=== PATIENT | female | born 1985 | race Caucasian/White ===

== ENCOUNTER 2019-04-02 18:44 | Inpatient (IN) | payer BC, MEDICAID ==
[~2019-04-02] VITALS: Ht 162.6 cm; Wt 73.4 kg
[2019-04-02 20:20] VITALS: BP 145/92
[2019-04-02] MEDS ORDERED: ACETAMINOPHEN 325 MG TABLET ONE (20:59)
[2019-04-02] MEDS ORDERED: PLEASE ENTER HEIGHT AND WEIGHT MC SCH (21:07)
[2019-04-02] MEDS: ACETAMINOPHEN 325 MG TABLET PO PRN (21:15)
[2019-04-02] MEDS ORDERED: LACTATED RINGERS 1,000 ML IV SCH (21:30)
[2019-04-02] MEDS: AMOXICILLIN 250 MG CAPSULE PO SCH (21:39)
[2019-04-02] MEDS: LACTATED RINGERS 1,000 ML IV SCH (21:48)
[2019-04-02 21:54] LABS: FIO2 RA %
[2019-04-02] MEDS ORDERED: DOCUSATE 100 MG CAPSULE ONE (22:19)
[2019-04-02] MEDS ORDERED: ENOXAPARIN 40 MG/0.4 ML SQ SCH (23:00)
[2019-04-02] MEDS: OSELTAMIVIR 75 MG CAPSULE PO SCH (23:31)
[2019-04-02 23:40] VITALS: BP 133/86
[2019-04-03] MEDS ORDERED: ACETAMINOPHEN 325 MG TABLET ONE ×4 (01:09→20:33)
[2019-04-03] MEDS: ACETAMINOPHEN 325 MG TABLET PO PRN ×3 (01:11→20:42)
[2019-04-03 01:15] VITALS: BP 137/93
[2019-04-03 05:23] VITALS: BP 117/81
[2019-04-03 05:33] LABS: BASOPHILS # (AUTO) 0.01 x10^3/uL (0-0.1); BASOPHILS % (AUTO) 0 % (0-1); EOSINOPHILS % (AUTO) 0 % (1-7); LYMPHOCYTES # (AUTO) 1.61 x10^3/uL (1-3.4); LYMPHOCYTES % (AUTO) 27 % (22-44); MD NO; MEAN CORPUSCULAR HEMOGLOBIN 31.9 pg (27.0-34.8); MEAN CORPUSCULAR HGB CONC 33.8 g/dL (32.4-35.8); MEAN CORPUSCULAR VOLUME 94.5 fL (80-100); MEAN PLATELET VOLUME 9.4 fL (7.4-10.4); MONOCYTES # (AUTO) 0.12 x10^3/uL (0.2-0.8); MONOCYTES % (AUTO) 2 % (2-9); NEUTROPHILS # (AUTO) 4.25 x10^3/uL (1.8-6.8); NEUTROPHILS % (AUTO) 71 % (42-75); PLATELET COUNT 119 x10^3/uL (130-400); RED CELL DISTRIBUTION WIDTH 13.7 % (9.6-15.2)
[2019-04-03] MEDS: LACTATED RINGERS 1,000 ML IV SCH ×3 (05:48→19:09)
[2019-04-03 05:51] LABS: ALBUMIN 2.2 g/dL (3.4-5.0); ANION GAP 9 mmol/L (5-15); CALCIUM 7.5 mg/dL (8.5-10.1); CHLORIDE 108 mmol/L (98-107)
[2019-04-03 05:55] LABS: ALANINE AMINOTRANSFERASE 22 U/L (12-78); ALKALINE PHOSPHATASE 72 U/L (45-117); BILIRUBIN, DIRECT 0.1 mg/dL (0.1-0.2); BILIRUBIN,TOTAL 0.3 mg/dL (0.2-1.0); CREATININE 0.84 mg/dL (0.55-1.02); TOTAL PROTEIN 5.7 g/dL (6.4-8.2)
[2019-04-03] MEDS: AMOXICILLIN 250 MG CAPSULE PO SCH ×3 (06:51→20:41)
[2019-04-03] MEDS: OSELTAMIVIR 75 MG CAPSULE PO SCH ×2 (08:41→20:41)
[2019-04-03] MEDS ORDERED: OSELTAMIVIR 75 MG CAPSULE PO SCH (09:00)
[2019-04-03 17:40] LABS: BASOPHILS # (AUTO) 0.01 x10^3/uL (0-0.1); BASOPHILS % (AUTO) 0 % (0-1); EOSINOPHILS % (AUTO) 0 % (1-7); LYMPHOCYTES # (AUTO) 1.93 x10^3/uL (1-3.4); LYMPHOCYTES % (AUTO) 28 % (22-44); MD NO; MEAN CORPUSCULAR HGB CONC 34.2 g/dL (32.4-35.8); MEAN CORPUSCULAR VOLUME 93.7 fL (80-100); MEAN PLATELET VOLUME 9.1 fL (7.4-10.4); MONOCYTES # (AUTO) 0.25 x10^3/uL (0.2-0.8); MONOCYTES % (AUTO) 4 % (2-9); NEUTROPHILS # (AUTO) 4.75 x10^3/uL (1.8-6.8); NEUTROPHILS % (AUTO) 68 % (42-75); PLATELET COUNT 131 x10^3/uL (130-400); RED BLOOD COUNT 3.66 x10^6/uL (3.82-5.3); RED CELL DISTRIBUTION WIDTH 13.4 % (9.6-15.2)
[2019-04-03] MEDS ORDERED: BETAMETHASONE 6 MG/ML, 5ML IM ONE ×2 (17:55→18:00)
[2019-04-03 19:20] VITALS: BP 139/86
[2019-04-03 23:30] VITALS: BP 154/93
[2019-04-04 00:40] VITALS: BP 134/85
[2019-04-04] MEDS: LACTATED RINGERS 1,000 ML IV SCH (03:42)
[2019-04-04 05:36] LABS: BASOPHILS # (AUTO) 0.02 x10^3/uL (0-0.1); BASOPHILS % (AUTO) 0 % (0-1); EOSINOPHILS % (AUTO) 0 % (1-7); LYMPHOCYTES # (AUTO) 1.73 x10^3/uL (1-3.4); LYMPHOCYTES % (AUTO) 22 % (22-44); MD NO; MEAN CORPUSCULAR HEMOGLOBIN 31.7 pg (27.0-34.8); MEAN CORPUSCULAR HGB CONC 33.9 g/dL (32.4-35.8); MEAN CORPUSCULAR VOLUME 93.6 fL (80-100); MEAN PLATELET VOLUME 9.8 fL (7.4-10.4); MONOCYTES # (AUTO) 0.18 x10^3/uL (0.2-0.8); MONOCYTES % (AUTO) 2 % (2-9); NEUTROPHILS # (AUTO) 5.82 x10^3/uL (1.8-6.8); NEUTROPHILS % (AUTO) 75 % (42-75); PLATELET COUNT 128 x10^3/uL (130-400); RED BLOOD COUNT 3.56 x10^6/uL (3.82-5.3); RED CELL DISTRIBUTION WIDTH 13.7 % (9.6-15.2)
[2019-04-04] MEDS: AMOXICILLIN 250 MG CAPSULE PO SCH ×3 (05:40→21:04)
[2019-04-04 05:49] LABS: ALBUMIN 2.3 g/dL (3.4-5.0); ANION GAP 7 mmol/L (5-15); CALCIUM 8.2 mg/dL (8.5-10.1); CHLORIDE 110 mmol/L (98-107)
[2019-04-04 05:52] LABS: ALANINE AMINOTRANSFERASE 21 U/L (12-78); ALKALINE PHOSPHATASE 78 U/L (45-117); BILIRUBIN,TOTAL 0.2 mg/dL (0.2-1.0); CREATININE 0.69 mg/dL (0.55-1.02); TOTAL PROTEIN 5.9 g/dL (6.4-8.2)
[2019-04-04 06:05] VITALS: BP 131/96
[2019-04-04] MEDS: OSELTAMIVIR 75 MG CAPSULE PO SCH ×2 (08:34→21:39)
[2019-04-04 08:37] VITALS: BP 128/86
[2019-04-04 13:16] VITALS: BP 139/81
[2019-04-04] MEDS ORDERED: ACETAMINOPHEN 325 MG TABLET ONE (20:45)
[2019-04-04] MEDS ORDERED: DOCUSATE 100 MG CAPSULE ONE (20:45)
[2019-04-04] MEDS: ACETAMINOPHEN 325 MG TABLET PO PRN (21:05)
[2019-04-04] MEDS: DOCUSATE 100 MG CAPSULE PO SCH (21:06)
[2019-04-05 05:39] LABS: BASOPHILS # (AUTO) 0.01 x10^3/uL (0-0.1); BASOPHILS % (AUTO) 0 % (0-1); EOSINOPHILS # (AUTO) 0.02 x10^3/uL (0-0.4); EOSINOPHILS % (AUTO) 0 % (1-7); LYMPHOCYTES # (AUTO) 2.37 x10^3/uL (1-3.4); LYMPHOCYTES % (AUTO) 30 % (22-44); MD NO; MEAN CORPUSCULAR HEMOGLOBIN 32.3 pg (27.0-34.8); MEAN CORPUSCULAR HGB CONC 34.1 g/dL (32.4-35.8); MEAN CORPUSCULAR VOLUME 94.7 fL (80-100); MEAN PLATELET VOLUME 9.6 fL (7.4-10.4); MONOCYTES # (AUTO) 0.34 x10^3/uL (0.2-0.8); MONOCYTES % (AUTO) 4 % (2-9); NEUTROPHILS # (AUTO) 5.14 x10^3/uL (1.8-6.8); NEUTROPHILS % (AUTO) 65 % (42-75); PLATELET COUNT 144 x10^3/uL (130-400); RED BLOOD COUNT 3.59 x10^6/uL (3.82-5.3); RED CELL DISTRIBUTION WIDTH 13.5 % (9.6-15.2)
[2019-04-05 05:49] LABS: ALBUMIN 2.2 g/dL (3.4-5.0); ANION GAP 7 mmol/L (5-15); CALCIUM 7.8 mg/dL (8.5-10.1); CHLORIDE 110 mmol/L (98-107)
[2019-04-05 05:54] LABS: ALANINE AMINOTRANSFERASE 25 U/L (12-78); ALKALINE PHOSPHATASE 74 U/L (45-117); BILIRUBIN,TOTAL 0.2 mg/dL (0.2-1.0); CREATININE 0.75 mg/dL (0.55-1.02); TOTAL PROTEIN 5.9 g/dL (6.4-8.2)
[2019-04-05] MEDS ORDERED: DOCUSATE 100 MG CAPSULE ONE ×2 (07:45→21:42)
[2019-04-05] MEDS ORDERED: PRENATAL VIT/IRON/FA 1 EACH TABLET ONE (07:45)
[2019-04-05] MEDS: DOCUSATE 100 MG CAPSULE PO SCH ×2 (08:04→21:00)
[2019-04-05] MEDS: PRENATAL VIT/IRON/FA 1 EACH TABLET PO SCH (08:05)
[2019-04-05] MEDS: AMOXICILLIN 250 MG CAPSULE PO SCH ×3 (08:05→22:27)
[2019-04-05] MEDS: OSELTAMIVIR 75 MG CAPSULE PO SCH ×2 (08:05→21:45)
[2019-04-05] MEDS ORDERED: LACTATED RINGERS 1,000 ML IVBOLUS ONE (15:00)
[2019-04-05] MEDS: LACTATED RINGERS 1,000 ML IV SCH ×2 (15:00→20:00)
[2019-04-05 19:45] VITALS: BP 144/89
[2019-04-05 22:35] VITALS: BP 155/79
[2019-04-06 04:48] VITALS: BP 161/88
[2019-04-06 04:57] LABS: BASOPHILS # (AUTO) 0.02 x10^3/uL (0-0.1); BASOPHILS % (AUTO) 0 % (0-1); EOSINOPHILS # (AUTO) 0.04 x10^3/uL (0-0.4); EOSINOPHILS % (AUTO) 1 % (1-7); LYMPHOCYTES # (AUTO) 2.65 x10^3/uL (1-3.4); LYMPHOCYTES % (AUTO) 30 % (22-44); MD NO; MEAN CORPUSCULAR HGB CONC 33.7 g/dL (32.4-35.8); MEAN CORPUSCULAR VOLUME 94.9 fL (80-100); MONOCYTES # (AUTO) 0.49 x10^3/uL (0.2-0.8); MONOCYTES % (AUTO) 6 % (2-9); NEUTROPHILS # (AUTO) 5.74 x10^3/uL (1.8-6.8); NEUTROPHILS % (AUTO) 64 % (42-75); PLATELET COUNT 152 x10^3/uL (130-400); RED BLOOD COUNT 3.87 x10^6/uL (3.82-5.3); RED CELL DISTRIBUTION WIDTH 13.7 % (9.6-15.2)
[2019-04-06 05:02] LABS: ALANINE AMINOTRANSFERASE 38 U/L (12-78); ALBUMIN 2.3 g/dL (3.4-5.0); ANION GAP 5 mmol/L (5-15); CALCIUM 8.2 mg/dL (8.5-10.1); CHLORIDE 109 mmol/L (98-107)
[2019-04-06 05:04] LABS: ALKALINE PHOSPHATASE 76 U/L (45-117); BILIRUBIN,TOTAL 0.4 mg/dL (0.2-1.0); CREATININE 0.82 mg/dL (0.55-1.02); TOTAL PROTEIN 6.2 g/dL (6.4-8.2)
[2019-04-06] MEDS: AMOXICILLIN 250 MG CAPSULE PO SCH ×3 (05:42→21:00)
[2019-04-06 05:45] VITALS: BP 109/61
[2019-04-06 06:41] VITALS: BP 146/85
[2019-04-06] MEDS ORDERED: PRENATAL VIT/IRON/FA 1 EACH TABLET ONE (08:58)
[2019-04-06 09:00] VITALS: BP 147/92
[2019-04-06] MEDS: DOCUSATE 100 MG CAPSULE PO SCH ×2 (09:04→21:00)
[2019-04-06] MEDS: PRENATAL VIT/IRON/FA 1 EACH TABLET PO SCH (09:04)
[2019-04-06] MEDS: OSELTAMIVIR 75 MG CAPSULE PO SCH ×2 (09:04→21:00)
[2019-04-06] MEDS ORDERED: DOCUSATE 100 MG CAPSULE ONE (20:58)
[2019-04-07] MEDS ORDERED: ACETAMINOPHEN 325 MG TABLET ONE ×2 (00:08→20:14)
[2019-04-07] MEDS: ACETAMINOPHEN 325 MG TABLET PO PRN ×2 (00:09→20:18)
[2019-04-07 05:40] LABS: BASOPHILS # (AUTO) 0.02 x10^3/uL (0-0.1); BASOPHILS % (AUTO) 0 % (0-1); EOSINOPHILS % (AUTO) 1 % (1-7); LYMPHOCYTES # (AUTO) 2.87 x10^3/uL (1-3.4); LYMPHOCYTES % (AUTO) 32 % (22-44); MD NO; MEAN CORPUSCULAR HGB CONC 33.8 g/dL (32.4-35.8); MEAN CORPUSCULAR VOLUME 94.5 fL (80-100); MEAN PLATELET VOLUME 9.5 fL (7.4-10.4); MONOCYTES % (AUTO) 5 % (2-9); NEUTROPHILS # (AUTO) 5.54 x10^3/uL (1.8-6.8); NEUTROPHILS % (AUTO) 62 % (42-75); PLATELET COUNT 161 x10^3/uL (130-400); RED BLOOD COUNT 3.76 x10^6/uL (3.82-5.3); RED CELL DISTRIBUTION WIDTH 12.9 % (9.6-15.2)
[2019-04-07 05:48] LABS: CALCIUM 8.1 mg/dL (8.5-10.1); CHLORIDE 109 mmol/L (98-107)
[2019-04-07 05:57] LABS: ALANINE AMINOTRANSFERASE 28 U/L (12-78); ALBUMIN 2.2 g/dL (3.4-5.0); ALKALINE PHOSPHATASE 76 U/L (45-117); ANION GAP 8 mmol/L (5-15); BILIRUBIN,TOTAL 0.2 mg/dL (0.2-1.0); CREATININE 0.72 mg/dL (0.55-1.02)
[2019-04-07] MEDS ORDERED: PRENATAL VIT/IRON/FA 1 EACH TABLET ONE (08:14)
[2019-04-07] MEDS ORDERED: DOCUSATE 100 MG CAPSULE ONE ×2 (08:14→20:49)
[2019-04-07] MEDS: AMOXICILLIN 250 MG CAPSULE PO SCH ×3 (09:00→20:55)
[2019-04-07 09:30] VITALS: BP 153/102
[2019-04-07] MEDS: PRENATAL VIT/IRON/FA 1 EACH TABLET PO SCH (09:48)
[2019-04-07] MEDS: DOCUSATE 100 MG CAPSULE PO SCH ×2 (09:48→20:55)
[2019-04-07] MEDS: OSELTAMIVIR 75 MG CAPSULE PO SCH ×2 (09:48→20:55)
[2019-04-08] MEDS ORDERED: ACETAMINOPHEN 325 MG TABLET ONE ×2 (02:50→21:15)
[2019-04-08] MEDS: ACETAMINOPHEN 325 MG TABLET PO PRN ×2 (02:50→21:16)
[2019-04-08 05:53] LABS: BASOPHILS # (AUTO) 0.02 x10^3/uL (0-0.1); BASOPHILS % (AUTO) 0 % (0-1); EOSINOPHILS # (AUTO) 0.05 x10^3/uL (0-0.4); EOSINOPHILS % (AUTO) 1 % (1-7); LYMPHOCYTES # (AUTO) 3.41 x10^3/uL (1-3.4); LYMPHOCYTES % (AUTO) 33 % (22-44); MD NO; MEAN CORPUSCULAR HEMOGLOBIN 31.6 pg (27.0-34.8); MEAN CORPUSCULAR HGB CONC 33.9 g/dL (32.4-35.8); MEAN CORPUSCULAR VOLUME 93.3 fL (80-100); MEAN PLATELET VOLUME 9.9 fL (7.4-10.4); MONOCYTES # (AUTO) 0.53 x10^3/uL (0.2-0.8); MONOCYTES % (AUTO) 5 % (2-9); NEUTROPHILS % (AUTO) 61 % (42-75); PLATELET COUNT 186 x10^3/uL (130-400); RED CELL DISTRIBUTION WIDTH 13.2 % (9.6-15.2)
[2019-04-08 06:05] LABS: ALANINE AMINOTRANSFERASE 21 U/L (12-78); ALBUMIN 2.1 g/dL (3.4-5.0); ANION GAP 6 mmol/L (5-15); CALCIUM 7.9 mg/dL (8.5-10.1); CHLORIDE 111 mmol/L (98-107); CREATININE 0.74 mg/dL (0.55-1.02)
[2019-04-08 06:06] LABS: ALKALINE PHOSPHATASE 80 U/L (45-117); BILIRUBIN,TOTAL 0.2 mg/dL (0.2-1.0); TOTAL PROTEIN 5.9 g/dL (6.4-8.2)
[2019-04-08] MEDS ORDERED: DOCUSATE 100 MG CAPSULE ONE ×2 (07:44→20:57)
[2019-04-08] MEDS ORDERED: PRENATAL VIT/IRON/FA 1 EACH TABLET ONE ×2 (07:44→07:46)
[2019-04-08] MEDS ORDERED: ASPIRIN 81 MG TABLET CHEW ONE (07:45)
[2019-04-08] MEDS: DOCUSATE 100 MG CAPSULE PO SCH ×2 (08:26→21:01)
[2019-04-08] MEDS: OSELTAMIVIR 75 MG CAPSULE PO SCH (08:26)
[2019-04-08] MEDS: AMOXICILLIN 250 MG CAPSULE PO SCH ×3 (08:26→21:00)
[2019-04-08] MEDS: ASPIRIN 81 MG TABLET CHEW PO SCH (08:26)
[2019-04-08] MEDS: PRENATAL VIT/IRON/FA 1 EACH TABLET PO SCH (08:26)
[2019-04-08 09:10] VITALS: BP 156/102
[2019-04-08] MEDS ORDERED: LABETALOL 100 MG TABLET ONE ×3 (09:40→21:29)
[2019-04-08] MEDS: LABETALOL 100 MG TABLET PO SCH ×2 (09:43→21:00)
[2019-04-08 11:00] VITALS: BP 143/86
[2019-04-08 12:53] VITALS: BP 166/89
[2019-04-08 13:08] VITALS: BP 174/87
[2019-04-08] MEDS ORDERED: ONDANSETRON ODT 4 MG ONE (21:34)
[2019-04-08] MEDS ORDERED: ONDANSETRON ODT 4 MG PO ONE (22:00)
[2019-04-09 05:43] LABS: BASOPHILS # (AUTO) 0.02 x10^3/uL (0-0.1); BASOPHILS % (AUTO) 0 % (0-1); EOSINOPHILS # (AUTO) 0.12 x10^3/uL (0-0.4); EOSINOPHILS % (AUTO) 1 % (1-7); LYMPHOCYTES # (AUTO) 3.33 x10^3/uL (1-3.4); LYMPHOCYTES % (AUTO) 34 % (22-44); MD NO; MEAN CORPUSCULAR HGB CONC 34.1 g/dL (32.4-35.8); MEAN CORPUSCULAR VOLUME 93.7 fL (80-100); MEAN PLATELET VOLUME 9.5 fL (7.4-10.4); MONOCYTES # (AUTO) 0.43 x10^3/uL (0.2-0.8); MONOCYTES % (AUTO) 4 % (2-9); NEUTROPHILS # (AUTO) 5.98 x10^3/uL (1.8-6.8); NEUTROPHILS % (AUTO) 61 % (42-75); PLATELET COUNT 192 x10^3/uL (130-400); RED BLOOD COUNT 3.78 x10^6/uL (3.82-5.3); RED CELL DISTRIBUTION WIDTH 13.3 % (9.6-15.2)
[2019-04-09 05:56] LABS: ALANINE AMINOTRANSFERASE 21 U/L (12-78); ALBUMIN 2.2 g/dL (3.4-5.0); ANION GAP 7 mmol/L (5-15); CALCIUM 8.2 mg/dL (8.5-10.1); CHLORIDE 109 mmol/L (98-107); CREATININE 0.78 mg/dL (0.55-1.02)
[2019-04-09 05:58] LABS: ALKALINE PHOSPHATASE 78 U/L (45-117); BILIRUBIN,TOTAL 0.2 mg/dL (0.2-1.0); TOTAL PROTEIN 6.1 g/dL (6.4-8.2)
[2019-04-09] MEDS: LABETALOL 100 MG TABLET PO SCH ×2 (06:56→21:33)
[2019-04-09] MEDS: AMOXICILLIN 250 MG CAPSULE PO SCH ×3 (08:54→21:33)
[2019-04-09] MEDS ORDERED: ASPIRIN 81 MG TABLET CHEW ONE (08:54)
[2019-04-09] MEDS: ASPIRIN 81 MG TABLET CHEW PO SCH (08:54)
[2019-04-09] MEDS: DOCUSATE 100 MG CAPSULE PO SCH ×2 (08:55→21:33)
[2019-04-09] MEDS: PRENATAL VIT/IRON/FA 1 EACH TABLET PO SCH (08:55)
[2019-04-09] MEDS ORDERED: PRENATAL VIT/IRON/FA 1 EACH TABLET ONE (09:33)
[2019-04-09] MEDS ORDERED: LABETALOL 100 MG TABLET ONE (20:57)
[2019-04-10] MEDS ORDERED: ACETAMINOPHEN 325 MG TABLET ONE ×2 (01:49→21:56)
[2019-04-10] MEDS: ACETAMINOPHEN 325 MG TABLET PO PRN ×2 (01:50→21:58)
[2019-04-10] MEDS ORDERED: LABETALOL 100 MG TABLET ONE ×3 (04:50→20:47)
[2019-04-10] MEDS: LABETALOL 100 MG TABLET PO SCH ×3 (05:26→21:57)
[2019-04-10 05:47] LABS: BASOPHILS # (AUTO) 0.02 x10^3/uL (0-0.1); BASOPHILS % (AUTO) 0 % (0-1); EOSINOPHILS # (AUTO) 0.08 x10^3/uL (0-0.4); EOSINOPHILS % (AUTO) 1 % (1-7); LYMPHOCYTES # (AUTO) 3.64 x10^3/uL (1-3.4); LYMPHOCYTES % (AUTO) 36 % (22-44); MD NO; MEAN CORPUSCULAR HEMOGLOBIN 31.1 pg (27.0-34.8); MEAN CORPUSCULAR HGB CONC 33.4 g/dL (32.4-35.8); MEAN CORPUSCULAR VOLUME 93.2 fL (80-100); MEAN PLATELET VOLUME 9.8 fL (7.4-10.4); MONOCYTES # (AUTO) 0.52 x10^3/uL (0.2-0.8); MONOCYTES % (AUTO) 5 % (2-9); NEUTROPHILS # (AUTO) 5.92 x10^3/uL (1.8-6.8); NEUTROPHILS % (AUTO) 58 % (42-75); PLATELET COUNT 199 x10^3/uL (130-400); RED BLOOD COUNT 3.85 x10^6/uL (3.82-5.3); RED CELL DISTRIBUTION WIDTH 13.4 % (9.6-15.2)
[2019-04-10 05:59] LABS: ALBUMIN 2.3 g/dL (3.4-5.0); ANION GAP 8 mmol/L (5-15); CALCIUM 8.4 mg/dL (8.5-10.1); CHLORIDE 108 mmol/L (98-107)
[2019-04-10 06:03] LABS: ALANINE AMINOTRANSFERASE 20 U/L (12-78); ALKALINE PHOSPHATASE 75 U/L (45-117); BILIRUBIN,TOTAL 0.3 mg/dL (0.2-1.0); CREATININE 0.84 mg/dL (0.55-1.02)
[2019-04-10] MEDS ORDERED: PRENATAL VIT/IRON/FA 1 EACH TABLET ONE (08:38)
[2019-04-10] MEDS ORDERED: DOCUSATE 100 MG CAPSULE ONE ×2 (08:38→20:47)
[2019-04-10] MEDS ORDERED: ASPIRIN 81 MG TABLET CHEW ONE (08:38)
[2019-04-10] MEDS: AMOXICILLIN 250 MG CAPSULE PO SCH ×3 (08:40→21:58)
[2019-04-10] MEDS: PRENATAL VIT/IRON/FA 1 EACH TABLET PO SCH (08:41)
[2019-04-10] MEDS: ASPIRIN 81 MG TABLET CHEW PO SCH (09:00)
[2019-04-10] MEDS: DOCUSATE 100 MG CAPSULE PO SCH ×2 (21:00→21:57)
[2019-04-11] MEDS ORDERED: LABETALOL 100 MG TABLET ONE ×2 (07:03→14:09)
[2019-04-11] MEDS: LABETALOL 100 MG TABLET PO SCH ×2 (07:05→14:11)
[2019-04-11] MEDS ORDERED: ASPIRIN 81 MG TABLET CHEW ONE (07:40)
[2019-04-11] MEDS ORDERED: DOCUSATE 100 MG CAPSULE ONE ×2 (07:40→21:04)
[2019-04-11] MEDS ORDERED: PRENATAL VIT/IRON/FA 1 EACH TABLET ONE (07:40)
[2019-04-11 07:45] VITALS: BP 143/94
[2019-04-11] MEDS: PRENATAL VIT/IRON/FA 1 EACH TABLET PO SCH (07:58)
[2019-04-11] MEDS: DOCUSATE 100 MG CAPSULE PO SCH ×2 (07:58→21:06)
[2019-04-11] MEDS: ASPIRIN 81 MG TABLET CHEW PO SCH (07:58)
[2019-04-11] MEDS: AMOXICILLIN 250 MG CAPSULE PO SCH ×3 (08:59→21:06)
[2019-04-11 12:02] VITALS: BP 140/92
[2019-04-11 16:07] VITALS: BP 143/86
[2019-04-11] MEDS ORDERED: LABETALOL 200 MG TABLET ONE (21:04)
[2019-04-11] MEDS: LABETALOL 200 MG TABLET PO SCH (21:06)
[2019-04-12] MEDS ORDERED: ACETAMINOPHEN 325 MG TABLET ONE ×2 (03:19→20:37)
[2019-04-12] MEDS: ACETAMINOPHEN 325 MG TABLET PO PRN ×2 (03:20→20:40)
[2019-04-12 04:43] LABS: BASOPHILS # (AUTO) 0.03 x10^3/uL (0-0.1); BASOPHILS % (AUTO) 0 % (0-1); EOSINOPHILS # (AUTO) 0.18 x10^3/uL (0-0.4); EOSINOPHILS % (AUTO) 2 % (1-7); LYMPHOCYTES # (AUTO) 3.51 x10^3/uL (1-3.4); LYMPHOCYTES % (AUTO) 33 % (22-44); MD NO; MEAN CORPUSCULAR HEMOGLOBIN 31.7 pg (27.0-34.8); MEAN CORPUSCULAR HGB CONC 33.5 g/dL (32.4-35.8); MEAN CORPUSCULAR VOLUME 94.7 fL (80-100); MEAN PLATELET VOLUME 10.1 fL (7.4-10.4); MONOCYTES # (AUTO) 0.62 x10^3/uL (0.2-0.8); MONOCYTES % (AUTO) 6 % (2-9); NEUTROPHILS # (AUTO) 6.24 x10^3/uL (1.8-6.8); NEUTROPHILS % (AUTO) 59 % (42-75); PLATELET COUNT 236 x10^3/uL (130-400); RED BLOOD COUNT 3.83 x10^6/uL (3.82-5.3); RED CELL DISTRIBUTION WIDTH 13.1 % (9.6-15.2)
[2019-04-12 04:52] LABS: ALBUMIN 2.2 g/dL (3.4-5.0); ANION GAP 7 mmol/L (5-15); CALCIUM 8.2 mg/dL (8.5-10.1); CHLORIDE 110 mmol/L (98-107)
[2019-04-12 04:55] LABS: ALANINE AMINOTRANSFERASE 16 U/L (12-78); ALKALINE PHOSPHATASE 82 U/L (45-117); BILIRUBIN,TOTAL 0.2 mg/dL (0.2-1.0); CREATININE 0.82 mg/dL (0.55-1.02); TOTAL PROTEIN 6.2 g/dL (6.4-8.2)
[2019-04-12] MEDS ORDERED: LABETALOL 200 MG TABLET ONE ×3 (06:02→21:18)
[2019-04-12] MEDS: LABETALOL 200 MG TABLET PO SCH ×3 (06:05→21:26)
[2019-04-12] MEDS ORDERED: DOCUSATE 100 MG CAPSULE ONE ×2 (07:41→20:37)
[2019-04-12] MEDS ORDERED: PRENATAL VIT/IRON/FA 1 EACH TABLET ONE (07:41)
[2019-04-12] MEDS ORDERED: ASPIRIN 81 MG TABLET CHEW ONE (07:42)
[2019-04-12] MEDS: AMOXICILLIN 250 MG CAPSULE PO SCH ×2 (08:20→20:39)
[2019-04-12] MEDS: PRENATAL VIT/IRON/FA 1 EACH TABLET PO SCH (08:20)
[2019-04-12] MEDS: DOCUSATE 100 MG CAPSULE PO SCH ×2 (08:21→20:40)
[2019-04-12] MEDS: ASPIRIN 81 MG TABLET CHEW PO SCH (08:21)
[2019-04-13] MEDS ORDERED: LABETALOL 200 MG TABLET ONE ×3 (05:57→20:46)
[2019-04-13] MEDS: AMOXICILLIN 250 MG CAPSULE PO SCH (06:00)
[2019-04-13] MEDS: LABETALOL 200 MG TABLET PO SCH ×3 (06:00→20:50)
[2019-04-13] MEDS ORDERED: ACETAMINOPHEN 325 MG TABLET ONE (06:04)
[2019-04-13] MEDS: ACETAMINOPHEN 325 MG TABLET PO PRN (06:06)
[2019-04-13 08:45] VITALS: BP 143/82
[2019-04-13] MEDS ORDERED: DOCUSATE 100 MG CAPSULE ONE ×2 (08:52→20:46)
[2019-04-13] MEDS ORDERED: ASPIRIN 81 MG TABLET CHEW ONE (08:52)
[2019-04-13] MEDS ORDERED: PRENATAL VIT/IRON/FA 1 EACH TABLET ONE (08:52)
[2019-04-13] MEDS: ASPIRIN 81 MG TABLET CHEW PO SCH (09:04)
[2019-04-13] MEDS: DOCUSATE 100 MG CAPSULE PO SCH ×2 (09:04→20:50)
[2019-04-13] MEDS: PRENATAL VIT/IRON/FA 1 EACH TABLET PO SCH (09:04)
[2019-04-13 14:11] VITALS: BP 130/83
[2019-04-14] MEDS ORDERED: LABETALOL 200 MG TABLET ONE ×3 (06:00→20:46)
[2019-04-14] MEDS: LABETALOL 200 MG TABLET PO SCH ×3 (06:03→20:55)
[2019-04-14 06:38] LABS: BASOPHILS # (AUTO) 0.03 x10^3/uL (0-0.1); BASOPHILS % (AUTO) 0 % (0-1); EOSINOPHILS # (AUTO) 0.23 x10^3/uL (0-0.4); EOSINOPHILS % (AUTO) 2 % (1-7); LYMPHOCYTES # (AUTO) 3.45 x10^3/uL (1-3.4); LYMPHOCYTES % (AUTO) 33 % (22-44); MD NO; MEAN CORPUSCULAR HEMOGLOBIN 31.7 pg (27.0-34.8); MEAN CORPUSCULAR HGB CONC 33.7 g/dL (32.4-35.8); MEAN CORPUSCULAR VOLUME 94.1 fL (80-100); MEAN PLATELET VOLUME 10.1 fL (7.4-10.4); MONOCYTES # (AUTO) 0.61 x10^3/uL (0.2-0.8); MONOCYTES % (AUTO) 6 % (2-9); NEUTROPHILS # (AUTO) 6.32 x10^3/uL (1.8-6.8); NEUTROPHILS % (AUTO) 59 % (42-75); PLATELET COUNT 229 x10^3/uL (130-400); RED BLOOD COUNT 3.95 x10^6/uL (3.82-5.3); RED CELL DISTRIBUTION WIDTH 13.1 % (9.6-15.2)
[2019-04-14 06:50] LABS: ALANINE AMINOTRANSFERASE 15 U/L (12-78); ALBUMIN 2.3 g/dL (3.4-5.0); ANION GAP 7 mmol/L (5-15); CALCIUM 8.5 mg/dL (8.5-10.1); CHLORIDE 109 mmol/L (98-107); CREATININE 0.85 mg/dL (0.55-1.02)
[2019-04-14 06:53] LABS: ALKALINE PHOSPHATASE 85 U/L (45-117); BILIRUBIN,TOTAL 0.2 mg/dL (0.2-1.0); TOTAL PROTEIN 6.5 g/dL (6.4-8.2)
[2019-04-14] MEDS ORDERED: DOCUSATE 100 MG CAPSULE ONE ×2 (07:55→20:46)
[2019-04-14] MEDS ORDERED: ASPIRIN 81 MG TABLET CHEW ONE (07:55)
[2019-04-14] MEDS ORDERED: PRENATAL VIT/IRON/FA 1 EACH TABLET ONE (07:55)
[2019-04-14] MEDS: DOCUSATE 100 MG CAPSULE PO SCH ×2 (09:00→20:55)
[2019-04-14] MEDS: ASPIRIN 81 MG TABLET CHEW PO SCH (09:00)
[2019-04-14] MEDS: PRENATAL VIT/IRON/FA 1 EACH TABLET PO SCH (09:03)
[2019-04-14 20:54] VITALS: BP 128/84
[2019-04-15 01:06] VITALS: BP 134/76
[2019-04-15] MEDS ORDERED: LABETALOL 200 MG TABLET ONE ×3 (05:16→21:56)
[2019-04-15 05:18] VITALS: BP 122/78
[2019-04-15] MEDS: LABETALOL 200 MG TABLET PO SCH ×3 (05:18→21:59)
[2019-04-15] MEDS ORDERED: ASPIRIN 81 MG TABLET CHEW ONE (07:52)
[2019-04-15] MEDS ORDERED: PRENATAL VIT/IRON/FA 1 EACH TABLET ONE (07:52)
[2019-04-15] MEDS ORDERED: DOCUSATE 100 MG CAPSULE ONE ×2 (07:52→21:56)
[2019-04-15 08:53] VITALS: BP 154/99
[2019-04-15] MEDS: ASPIRIN 81 MG TABLET CHEW PO SCH (09:11)
[2019-04-15] MEDS: PRENATAL VIT/IRON/FA 1 EACH TABLET PO SCH (09:11)
[2019-04-15] MEDS: DOCUSATE 100 MG CAPSULE PO SCH ×2 (09:11→21:58)
[2019-04-15] MEDS ORDERED: ACETAMINOPHEN 325 MG TABLET ONE (21:20)
[2019-04-15] MEDS: ACETAMINOPHEN 325 MG TABLET PO PRN (21:21)
[2019-04-16] MEDS: LABETALOL 200 MG TABLET PO SCH ×4 (01:17→22:52)
[2019-04-16 06:33] LABS: BASOPHILS # (AUTO) 0.03 x10^3/uL (0-0.1); BASOPHILS % (AUTO) 0 % (0-1); EOSINOPHILS # (AUTO) 0.18 x10^3/uL (0-0.4); EOSINOPHILS % (AUTO) 2 % (1-7); LYMPHOCYTES # (AUTO) 3.18 x10^3/uL (1-3.4); LYMPHOCYTES % (AUTO) 36 % (22-44); MD NO; MEAN CORPUSCULAR HEMOGLOBIN 32.1 pg (27.0-34.8); MEAN CORPUSCULAR HGB CONC 34.1 g/dL (32.4-35.8); MEAN PLATELET VOLUME 10.5 fL (7.4-10.4); MONOCYTES # (AUTO) 0.54 x10^3/uL (0.2-0.8); MONOCYTES % (AUTO) 6 % (2-9); NEUTROPHILS % (AUTO) 56 % (42-75); PLATELET COUNT 237 x10^3/uL (130-400); RED BLOOD COUNT 3.84 x10^6/uL (3.82-5.3); RED CELL DISTRIBUTION WIDTH 13.1 % (9.6-15.2)
[2019-04-16 06:44] LABS: ALBUMIN 2.3 g/dL (3.4-5.0); ANION GAP 8 mmol/L (5-15); CALCIUM 8.3 mg/dL (8.5-10.1); CHLORIDE 108 mmol/L (98-107)
[2019-04-16 06:48] LABS: ALANINE AMINOTRANSFERASE 18 U/L (12-78); ALKALINE PHOSPHATASE 89 U/L (45-117); BILIRUBIN,TOTAL 0.2 mg/dL (0.2-1.0); CREATININE 0.86 mg/dL (0.55-1.02); TOTAL PROTEIN 6.3 g/dL (6.4-8.2)
[2019-04-16 06:50] LABS: BILIRUBIN, DIRECT < 0.1 mg/dL (0.1-0.2)
[2019-04-16 08:04] VITALS: BP 155/97
[2019-04-16] MEDS ORDERED: PRENATAL VIT/IRON/FA 1 EACH TABLET ONE (08:17)
[2019-04-16] MEDS ORDERED: DOCUSATE 100 MG CAPSULE ONE ×2 (08:17→22:50)
[2019-04-16] MEDS ORDERED: ASPIRIN 81 MG TABLET CHEW ONE (08:17)
[2019-04-16] MEDS: PRENATAL VIT/IRON/FA 1 EACH TABLET PO SCH (08:18)
[2019-04-16] MEDS: ASPIRIN 81 MG TABLET CHEW PO SCH (08:18)
[2019-04-16] MEDS: DOCUSATE 100 MG CAPSULE PO SCH ×2 (08:18→22:52)
[2019-04-16] MEDS ORDERED: LABETALOL 200 MG TABLET ONE ×3 (08:34→22:50)
[2019-04-16 09:29] LABS: CREATININE CLEARANCE,URINE 105.5 (70.0-140.0)
[2019-04-16 11:28] VITALS: BP 128/79
[2019-04-16 16:01] VITALS: BP 119/75
[2019-04-16 20:24] VITALS: BP 139/85
[2019-04-17] MEDS ORDERED: LABETALOL 200 MG TABLET ONE ×3 (07:04→21:22)
[2019-04-17] MEDS ORDERED: ASPIRIN 81 MG TABLET CHEW ONE (07:04)
[2019-04-17] MEDS ORDERED: PRENATAL VIT/IRON/FA 1 EACH TABLET ONE (07:04)
[2019-04-17] MEDS ORDERED: DOCUSATE 100 MG CAPSULE ONE ×2 (07:04→21:21)
[2019-04-17] MEDS: LABETALOL 200 MG TABLET PO SCH ×3 (07:18→21:26)
[2019-04-17] MEDS: DOCUSATE 100 MG CAPSULE PO SCH ×2 (10:11→21:26)
[2019-04-17] MEDS: PRENATAL VIT/IRON/FA 1 EACH TABLET PO SCH (10:11)
[2019-04-17] MEDS: ASPIRIN 81 MG TABLET CHEW PO SCH (10:11)
[2019-04-17 11:30] VITALS: BP 128/73
[2019-04-18] MEDS ORDERED: LABETALOL 200 MG TABLET ONE ×3 (06:04→21:40)
[2019-04-18] MEDS: LABETALOL 200 MG TABLET PO SCH ×2 (06:06→14:21)
[2019-04-18 07:20] VITALS: BP 132/89
[2019-04-18] MEDS ORDERED: PRENATAL VIT/IRON/FA 1 EACH TABLET ONE (10:59)
[2019-04-18] MEDS ORDERED: DOCUSATE 100 MG CAPSULE ONE ×2 (10:59→21:44)
[2019-04-18] MEDS ORDERED: ASPIRIN 81 MG TABLET CHEW ONE (10:59)
[2019-04-18] MEDS: PRENATAL VIT/IRON/FA 1 EACH TABLET PO SCH (11:01)
[2019-04-18] MEDS: ASPIRIN 81 MG TABLET CHEW PO SCH (11:01)
[2019-04-18] MEDS: DOCUSATE 100 MG CAPSULE PO SCH ×2 (11:02→21:44)
[2019-04-18 12:24] VITALS: BP 133/80
[2019-04-18 19:50] VITALS: BP 138/88
[2019-04-18] MEDS ORDERED: LABETALOL 200 MG TABLET PO SCH (22:00)
[2019-04-19] MEDS ORDERED: LABETALOL 200 MG TABLET ONE ×3 (05:57→22:33)
[2019-04-19] MEDS: LABETALOL 200 MG TABLET PO SCH ×2 (06:00→14:28)
[2019-04-19 07:30] VITALS: BP 164/101
[2019-04-19] MEDS ORDERED: PRENATAL VIT/IRON/FA 1 EACH TABLET ONE (09:11)
[2019-04-19] MEDS ORDERED: ASPIRIN 81 MG TABLET CHEW ONE (09:11)
[2019-04-19] MEDS ORDERED: DOCUSATE 100 MG CAPSULE ONE ×2 (09:11→20:30)
[2019-04-19] MEDS: DOCUSATE 100 MG CAPSULE PO SCH ×2 (09:20→20:33)
[2019-04-19] MEDS: PRENATAL VIT/IRON/FA 1 EACH TABLET PO SCH (09:20)
[2019-04-19] MEDS: ASPIRIN 81 MG TABLET CHEW PO SCH (09:20)
[2019-04-19 09:32] LABS: BASOPHILS # (AUTO) 0.04 x10^3/uL (0-0.1); BASOPHILS % (AUTO) 1 % (0-1); EOSINOPHILS % (AUTO) 1 % (1-7); LYMPHOCYTES # (AUTO) 2.38 x10^3/uL (1-3.4); LYMPHOCYTES % (AUTO) 29 % (22-44); MD NO; MEAN CORPUSCULAR HEMOGLOBIN 31.4 pg (27.0-34.8); MEAN CORPUSCULAR HGB CONC 33.9 g/dL (32.4-35.8); MEAN CORPUSCULAR VOLUME 92.5 fL (80-100); MEAN PLATELET VOLUME 10.1 fL (7.4-10.4); MONOCYTES # (AUTO) 0.38 x10^3/uL (0.2-0.8); MONOCYTES % (AUTO) 5 % (2-9); NEUTROPHILS # (AUTO) 5.43 x10^3/uL (1.8-6.8); NEUTROPHILS % (AUTO) 65 % (42-75); PLATELET COUNT 207 x10^3/uL (130-400); RED CELL DISTRIBUTION WIDTH 13.2 % (9.6-15.2)
[2019-04-19 10:23] LABS: CHLORIDE 106 mmol/L (98-107)
[2019-04-19 10:26] LABS: ANION GAP 7 mmol/L (5-15); CALCIUM 9.3 mg/dL (8.5-10.1)
[2019-04-19 10:44] LABS: ALANINE AMINOTRANSFERASE 24 U/L (12-78); ALBUMIN 2.4 g/dL (3.4-5.0); ALKALINE PHOSPHATASE 102 U/L (45-117); BILIRUBIN,TOTAL 0.2 mg/dL (0.2-1.0); CREATININE 0.92 mg/dL (0.55-1.02); TOTAL PROTEIN 7.3 g/dL (6.4-8.2)
[2019-04-19] MEDS ORDERED: ACETAMINOPHEN 325 MG TABLET ONE (17:19)
[2019-04-19] MEDS ORDERED: CALCIUM CARBONATE 500 MG TAB.CHEW ONE (17:19)
[2019-04-19] MEDS: ACETAMINOPHEN 325 MG TABLET PO PRN (17:21)
[2019-04-19] MEDS ORDERED: CALCIUM CARBONATE 500 MG TAB.CHEW PO PRN (17:30)
[2019-04-20] MEDS ORDERED: LABETALOL 200 MG TABLET ONE ×3 (06:00→22:00)
[2019-04-20] MEDS: LABETALOL 200 MG TABLET PO SCH ×4 (06:02→22:02)
[2019-04-20] MEDS ORDERED: PRENATAL VIT/IRON/FA 1 EACH TABLET ONE (08:48)
[2019-04-20] MEDS ORDERED: DOCUSATE 100 MG CAPSULE ONE ×2 (08:48→19:19)
[2019-04-20] MEDS: DOCUSATE 100 MG CAPSULE PO SCH ×2 (08:52→19:29)
[2019-04-20] MEDS: PRENATAL VIT/IRON/FA 1 EACH TABLET PO SCH (08:52)
[2019-04-20] MEDS ORDERED: ASPIRIN 81 MG TABLET CHEW ONE (08:55)
[2019-04-20] MEDS: ASPIRIN 81 MG TABLET CHEW PO SCH (08:57)
[2019-04-20] MEDS ORDERED: ACETAMINOPHEN 325 MG TABLET ONE (19:19)
[2019-04-20] MEDS: ACETAMINOPHEN 325 MG TABLET PO PRN (19:29)
[2019-04-20 19:32] VITALS: BP 140/92
[2019-04-21] MEDS ORDERED: LABETALOL 200 MG TABLET ONE ×3 (05:50→20:36)
[2019-04-21] MEDS: LABETALOL 200 MG TABLET PO SCH ×3 (05:52→21:23)
[2019-04-21] MEDS ORDERED: PRENATAL VIT/IRON/FA 1 EACH TABLET ONE (08:56)
[2019-04-21] MEDS ORDERED: ASPIRIN 81 MG TABLET CHEW ONE (08:56)
[2019-04-21] MEDS ORDERED: DOCUSATE 100 MG CAPSULE ONE ×2 (08:57→20:36)
[2019-04-21] MEDS: DOCUSATE 100 MG CAPSULE PO SCH ×2 (09:00→21:23)
[2019-04-21] MEDS: ASPIRIN 81 MG TABLET CHEW PO SCH (09:00)
[2019-04-21] MEDS: PRENATAL VIT/IRON/FA 1 EACH TABLET PO SCH (09:00)
[2019-04-21 20:41] VITALS: BP 143/93
[2019-04-22] MEDS ORDERED: LABETALOL 200 MG TABLET ONE ×3 (05:33→20:35)
[2019-04-22] MEDS: LABETALOL 200 MG TABLET PO SCH ×3 (05:36→20:38)
[2019-04-22 06:40] LABS: BASOPHILS # (AUTO) 0.03 x10^3/uL (0-0.1); BASOPHILS % (AUTO) 0 % (0-1); EOSINOPHILS # (AUTO) 0.17 x10^3/uL (0-0.4); EOSINOPHILS % (AUTO) 2 % (1-7); LYMPHOCYTES # (AUTO) 2.58 x10^3/uL (1-3.4); LYMPHOCYTES % (AUTO) 34 % (22-44); MD NO; MEAN CORPUSCULAR HEMOGLOBIN 32.1 pg (27.0-34.8); MEAN CORPUSCULAR HGB CONC 34.2 g/dL (32.4-35.8); MEAN PLATELET VOLUME 10.5 fL (7.4-10.4); MONOCYTES # (AUTO) 0.43 x10^3/uL (0.2-0.8); MONOCYTES % (AUTO) 6 % (2-9); NEUTROPHILS # (AUTO) 4.51 x10^3/uL (1.8-6.8); NEUTROPHILS % (AUTO) 58 % (42-75); PLATELET COUNT 175 x10^3/uL (130-400); RED CELL DISTRIBUTION WIDTH 13.3 % (9.6-15.2)
[2019-04-22 06:49] LABS: ALBUMIN 2.1 g/dL (3.4-5.0); ANION GAP 7 mmol/L (5-15); CALCIUM 8.4 mg/dL (8.5-10.1); CHLORIDE 109 mmol/L (98-107)
[2019-04-22 06:53] LABS: ALANINE AMINOTRANSFERASE 23 U/L (12-78); ALKALINE PHOSPHATASE 96 U/L (45-117); BILIRUBIN,TOTAL 0.3 mg/dL (0.2-1.0); CREATININE 0.94 mg/dL (0.55-1.02); TOTAL PROTEIN 6.5 g/dL (6.4-8.2)
[2019-04-22 08:49] VITALS: BP 140/93
[2019-04-22] MEDS ORDERED: PRENATAL VIT/IRON/FA 1 EACH TABLET ONE (09:18)
[2019-04-22] MEDS ORDERED: DOCUSATE 100 MG CAPSULE ONE ×2 (09:19→20:35)
[2019-04-22] MEDS ORDERED: ASPIRIN 81 MG TABLET CHEW ONE (09:19)
[2019-04-22] MEDS: ASPIRIN 81 MG TABLET CHEW PO SCH (09:21)
[2019-04-22] MEDS: PRENATAL VIT/IRON/FA 1 EACH TABLET PO SCH (09:21)
[2019-04-22] MEDS: DOCUSATE 100 MG CAPSULE PO SCH ×2 (09:21→20:38)
[2019-04-22 19:20] VITALS: BP 150/97
[2019-04-22 20:33] VITALS: BP 140/94
[2019-04-22 22:12] VITALS: BP 142/90
[2019-04-23] MEDS ORDERED: LABETALOL 200 MG TABLET ONE ×3 (05:37→20:04)
[2019-04-23] MEDS: LABETALOL 200 MG TABLET PO SCH ×3 (05:42→21:50)
[2019-04-23 07:40] VITALS: BP 144/94
[2019-04-23] MEDS ORDERED: PRENATAL VIT/IRON/FA 1 EACH TABLET ONE (09:02)
[2019-04-23] MEDS ORDERED: ASPIRIN 81 MG TABLET CHEW ONE (09:03)
[2019-04-23] MEDS ORDERED: DOCUSATE 100 MG CAPSULE ONE ×2 (09:03→20:04)
[2019-04-23] MEDS: DOCUSATE 100 MG CAPSULE PO SCH ×2 (09:19→21:00)
[2019-04-23] MEDS: PRENATAL VIT/IRON/FA 1 EACH TABLET PO SCH (09:19)
[2019-04-23] MEDS: ASPIRIN 81 MG TABLET CHEW PO SCH (09:19)
[2019-04-23 19:53] VITALS: BP 115/74
[2019-04-23 20:57] VITALS: BP 139/86
[2019-04-24] MEDS ORDERED: LABETALOL 200 MG TABLET ONE ×3 (05:36→20:56)
[2019-04-24] MEDS: LABETALOL 200 MG TABLET PO SCH ×3 (05:37→21:00)
[2019-04-24 06:04] LABS: BASOPHILS # (AUTO) 0.03 x10^3/uL (0-0.1); BASOPHILS % (AUTO) 0 % (0-1); EOSINOPHILS # (AUTO) 0.14 x10^3/uL (0-0.4); EOSINOPHILS % (AUTO) 2 % (1-7); LYMPHOCYTES # (AUTO) 2.74 x10^3/uL (1-3.4); LYMPHOCYTES % (AUTO) 34 % (22-44); MD NO; MEAN CORPUSCULAR HEMOGLOBIN 31.5 pg (27.0-34.8); MEAN CORPUSCULAR HGB CONC 33.5 g/dL (32.4-35.8); MEAN CORPUSCULAR VOLUME 94.1 fL (80-100); MEAN PLATELET VOLUME 10.6 fL (7.4-10.4); MONOCYTES # (AUTO) 0.45 x10^3/uL (0.2-0.8); MONOCYTES % (AUTO) 6 % (2-9); NEUTROPHILS # (AUTO) 4.78 x10^3/uL (1.8-6.8); NEUTROPHILS % (AUTO) 59 % (42-75); PLATELET COUNT 163 x10^3/uL (130-400); RED BLOOD COUNT 3.74 x10^6/uL (3.82-5.3); RED CELL DISTRIBUTION WIDTH 13.1 % (9.6-15.2)
[2019-04-24 06:14] LABS: CHLORIDE 110 mmol/L (98-107)
[2019-04-24 06:30] LABS: ALANINE AMINOTRANSFERASE 21 U/L (12-78); ALBUMIN 2.1 g/dL (3.4-5.0); ALKALINE PHOSPHATASE 90 U/L (45-117); ANION GAP 9 mmol/L (5-15); BILIRUBIN,TOTAL 0.3 mg/dL (0.2-1.0); CALCIUM 8.4 mg/dL (8.5-10.1); CREATININE 0.95 mg/dL (0.55-1.02); TOTAL PROTEIN 6.2 g/dL (6.4-8.2)
[2019-04-24 08:10] VITALS: BP 141/92
[2019-04-24] MEDS ORDERED: PRENATAL VIT/IRON/FA 1 EACH TABLET ONE (10:14)
[2019-04-24] MEDS ORDERED: DOCUSATE 100 MG CAPSULE ONE ×2 (10:14→20:56)
[2019-04-24] MEDS ORDERED: ASPIRIN 81 MG TABLET CHEW ONE (10:15)
[2019-04-24] MEDS: ASPIRIN 81 MG TABLET CHEW PO SCH (10:19)
[2019-04-24] MEDS: PRENATAL VIT/IRON/FA 1 EACH TABLET PO SCH (10:19)
[2019-04-24] MEDS: DOCUSATE 100 MG CAPSULE PO SCH ×2 (10:19→21:00)
[2019-04-24 20:58] VITALS: BP 131/80
[2019-04-25 00:35] VITALS: BP 131/88
[2019-04-25] MEDS ORDERED: LABETALOL 200 MG TABLET ONE ×3 (05:16→21:06)
[2019-04-25 05:17] VITALS: BP 131/88
[2019-04-25] MEDS: LABETALOL 200 MG TABLET PO SCH ×3 (05:18→21:07)
[2019-04-25] MEDS ORDERED: ASPIRIN 81 MG TABLET CHEW ONE (09:13)
[2019-04-25] MEDS ORDERED: PRENATAL VIT/IRON/FA 1 EACH TABLET ONE (09:13)
[2019-04-25] MEDS ORDERED: DOCUSATE 100 MG CAPSULE ONE ×2 (09:13→21:06)
[2019-04-25] MEDS: DOCUSATE 100 MG CAPSULE PO SCH ×2 (09:16→21:07)
[2019-04-25] MEDS: ASPIRIN 81 MG TABLET CHEW PO SCH (09:16)
[2019-04-25] MEDS: PRENATAL VIT/IRON/FA 1 EACH TABLET PO SCH (09:16)
[2019-04-25] MEDS ORDERED: BETAMETHASONE 6 MG/ML, 5ML IM ONE (19:28)
[2019-04-25] MEDS: BETAMETHASONE 6 MG/ML, 5ML IM SCH (19:35)
[2019-04-25 19:36] VITALS: BP 141/94
[2019-04-26] VITALS (11 sets, daily range): BP systolic 130–165; BP diastolic 86–107
[2019-04-26 05:02] LABS: BASOPHILS # (AUTO) 0.01 x10^3/uL (0-0.1); BASOPHILS % (AUTO) 0 % (0-1); EOSINOPHILS % (AUTO) 0 % (1-7); LYMPHOCYTES % (AUTO) 15 % (22-44); MD NO; MEAN CORPUSCULAR HEMOGLOBIN 31.5 pg (27.0-34.8); MEAN CORPUSCULAR HGB CONC 33.8 g/dL (32.4-35.8); MEAN PLATELET VOLUME 10.7 fL (7.4-10.4); MONOCYTES # (AUTO) 0.06 x10^3/uL (0.2-0.8); MONOCYTES % (AUTO) 1 % (2-9); NEUTROPHILS # (AUTO) 9.61 x10^3/uL (1.8-6.8); NEUTROPHILS % (AUTO) 84 % (42-75); PLATELET COUNT 200 x10^3/uL (130-400); RED BLOOD COUNT 4.16 x10^6/uL (3.82-5.3)
[2019-04-26 05:08] LABS: ALANINE AMINOTRANSFERASE 29 U/L (12-78); ALBUMIN 2.5 g/dL (3.4-5.0); ANION GAP 10 mmol/L (5-15); CHLORIDE 108 mmol/L (98-107); CREATININE 1.01 mg/dL (0.55-1.02)
[2019-04-26 05:11] LABS: ALKALINE PHOSPHATASE 110 U/L (45-117); BILIRUBIN,TOTAL 0.2 mg/dL (0.2-1.0); TOTAL PROTEIN 7.1 g/dL (6.4-8.2)
[2019-04-26] MEDS ORDERED: LABETALOL 200 MG TABLET ONE ×3 (05:38→21:52)
[2019-04-26] MEDS: LABETALOL 200 MG TABLET PO SCH ×3 (05:41→21:54)
[2019-04-26] MEDS ORDERED: DOCUSATE 100 MG CAPSULE ONE (08:21)
[2019-04-26] MEDS ORDERED: PRENATAL VIT/IRON/FA 1 EACH TABLET ONE (08:21)
[2019-04-26] MEDS ORDERED: ASPIRIN 81 MG TABLET CHEW ONE (08:21)
[2019-04-26] MEDS ORDERED: ACETAMINOPHEN 325 MG TABLET ONE ×3 (08:21→23:13)
[2019-04-26] MEDS: ASPIRIN 81 MG TABLET CHEW PO SCH (08:23)
[2019-04-26] MEDS: DOCUSATE 100 MG CAPSULE PO SCH ×2 (08:23→21:00)
[2019-04-26] MEDS: PRENATAL VIT/IRON/FA 1 EACH TABLET PO SCH (08:23)
[2019-04-26] MEDS: ACETAMINOPHEN 325 MG TABLET PO PRN ×3 (08:23→23:16)
[2019-04-26] MEDS: D5%-LACTATED RINGERS 1,000 ML IV SCH (18:14)
[2019-04-26] MEDS: BETAMETHASONE 6 MG/ML, 5ML IM SCH (19:27)
[2019-04-26 20:20] LABS: BASOPHILS # (AUTO) 0.03 x10^3/uL (0-0.1); BASOPHILS % (AUTO) 0 % (0-1); EOSINOPHILS # (AUTO) 0.01 x10^3/uL (0-0.4); EOSINOPHILS % (AUTO) 0 % (1-7); LYMPHOCYTES # (AUTO) 2.62 x10^3/uL (1-3.4); LYMPHOCYTES % (AUTO) 23 % (22-44); MD NO; MEAN CORPUSCULAR HEMOGLOBIN 31.9 pg (27.0-34.8); MEAN CORPUSCULAR HGB CONC 34.1 g/dL (32.4-35.8); MEAN CORPUSCULAR VOLUME 93.7 fL (80-100); MEAN PLATELET VOLUME 10.7 fL (7.4-10.4); MONOCYTES # (AUTO) 0.49 x10^3/uL (0.2-0.8); MONOCYTES % (AUTO) 4 % (2-9); NEUTROPHILS # (AUTO) 8.07 x10^3/uL (1.8-6.8); NEUTROPHILS % (AUTO) 72 % (42-75); PLATELET COUNT 183 x10^3/uL (130-400); RED BLOOD COUNT 3.73 x10^6/uL (3.82-5.3); RED CELL DISTRIBUTION WIDTH 13.2 % (9.6-15.2)
[2019-04-26 20:27] LABS: ALANINE AMINOTRANSFERASE 29 U/L (12-78); ALBUMIN 2.3 g/dL (3.4-5.0); ANION GAP 7 mmol/L (5-15); CALCIUM 8.5 mg/dL (8.5-10.1); CHLORIDE 108 mmol/L (98-107); CREATININE 1.03 mg/dL (0.55-1.02)
[2019-04-26 20:29] LABS: ALKALINE PHOSPHATASE 96 U/L (45-117); BILIRUBIN,TOTAL 0.2 mg/dL (0.2-1.0); TOTAL PROTEIN 6.7 g/dL (6.4-8.2)
[2019-04-26 22:35] LABS: MICROSCOPIC AUTO
[2019-04-27 00:57] VITALS: BP 123/76
[2019-04-27] MEDS: D5%-LACTATED RINGERS 1,000 ML IV SCH ×2 (03:15→12:10)
[2019-04-27 03:57] VITALS: BP 109/72
[2019-04-27] MEDS ORDERED: LABETALOL 200 MG TABLET ONE ×3 (05:19→22:58)
[2019-04-27] MEDS: LABETALOL 200 MG TABLET PO SCH ×3 (05:21→23:00)
[2019-04-27 05:34] VITALS: BP 133/84
[2019-04-27 05:47] LABS: ALBUMIN 2.2 g/dL (3.4-5.0); ANION GAP 5 mmol/L (5-15); CALCIUM 8.5 mg/dL (8.5-10.1); CHLORIDE 108 mmol/L (98-107)
[2019-04-27 05:51] LABS: ALANINE AMINOTRANSFERASE 30 U/L (12-78); ALKALINE PHOSPHATASE 88 U/L (45-117); BILIRUBIN,TOTAL 0.3 mg/dL (0.2-1.0); CREATININE 0.98 mg/dL (0.55-1.02); TOTAL PROTEIN 6.3 g/dL (6.4-8.2)
[2019-04-27] MEDS ORDERED: ACETAMINOPHEN 325 MG TABLET ONE ×2 (07:51→12:02)
[2019-04-27] MEDS ORDERED: ONDANSETRON 2MG/ML, 2ML ONE ×2 (07:51→17:22)
[2019-04-27] MEDS: ACETAMINOPHEN 325 MG TABLET PO PRN ×2 (07:53→12:04)
[2019-04-27] MEDS ORDERED: ONDANSETRON 2MG/ML, 2ML IVPush PRN ×2 (08:00→17:30)
[2019-04-27] MEDS: PRENATAL VIT/IRON/FA 1 EACH TABLET PO SCH (09:00)
[2019-04-27] MEDS: ASPIRIN 81 MG TABLET CHEW PO SCH (09:00)
[2019-04-27] MEDS: DOCUSATE 100 MG CAPSULE PO SCH (09:00)
[2019-04-27 09:29] VITALS: BP 159/96
[2019-04-27] MEDS ORDERED: ASPIRIN 81 MG TABLET CHEW ONE (09:54)
[2019-04-27] MEDS ORDERED: MAGNESIUM SULF. PMX 20GM/500ML 500 ML IV ONE (16:55)
[2019-04-27] MEDS ORDERED: LACTATED RINGERS 1,000 ML IVBOLUS ONE (17:00)
[2019-04-27] MEDS ORDERED: METOCLOPRAMIDE 5 MG/ML, 2ML IV ONE (17:00)
[2019-04-27] MEDS ORDERED: SODIUM CITRATE/CITRIC ACID 30 ML UDC PO ONE (17:00)
[2019-04-27] MEDS ORDERED: NEWBORN KIT ONE (17:03)
[2019-04-27] MEDS ORDERED: METOCLOPRAMIDE 5 MG/ML, 2ML ONE ×2 (17:08→22:58)
[2019-04-27] MEDS ORDERED: SODIUM CITRATE/CITRIC ACID 30 ML UDC ONE (17:08)
[2019-04-27] MEDS ORDERED: CEFAZOLIN 1,000 MG ONE (17:22)
[2019-04-27] MEDS ORDERED: KETOROLAC 30 MG/1 ML ONE (17:22)
[2019-04-27] MEDS ORDERED: DEXAMETHASONE 4 MG/ML, 1ML ONE (17:22)
[2019-04-27] MEDS ORDERED: PHENYLEPHRINE 10 MG/ML ONE (17:22)
[2019-04-27] MEDS ORDERED: EPHEDRINE 50 MG/ML, 1ML ONE (17:22)
[2019-04-27] MEDS ORDERED: OXYTOCIN 10 UNITS/ML, 1ML ONE (17:22)
[2019-04-27 17:27] LABS: BASOPHILS # (AUTO) 0.01 x10^3/uL (0-0.1); BASOPHILS % (AUTO) 0 % (0-1); EOSINOPHILS # (AUTO) 0.06 x10^3/uL (0-0.4); EOSINOPHILS % (AUTO) 1 % (1-7); LYMPHOCYTES # (AUTO) 2.67 x10^3/uL (1-3.4); LYMPHOCYTES % (AUTO) 27 % (22-44); MD NO; MEAN CORPUSCULAR HEMOGLOBIN 31.9 pg (27.0-34.8); MEAN CORPUSCULAR HGB CONC 33.9 g/dL (32.4-35.8); MEAN CORPUSCULAR VOLUME 93.9 fL (80-100); MEAN PLATELET VOLUME 10.3 fL (7.4-10.4); MONOCYTES # (AUTO) 0.45 x10^3/uL (0.2-0.8); MONOCYTES % (AUTO) 5 % (2-9); NEUTROPHILS # (AUTO) 6.62 x10^3/uL (1.8-6.8); NEUTROPHILS % (AUTO) 68 % (42-75); PLATELET COUNT 193 x10^3/uL (130-400); RED BLOOD COUNT 3.63 x10^6/uL (3.82-5.3); RED CELL DISTRIBUTION WIDTH 13.3 % (9.6-15.2)
[2019-04-27] MEDS ORDERED: EPHEDRINE 50 MG/ML, 1ML IVPush PRN (17:30)
[2019-04-27] MEDS ORDERED: hydrALAzine 20 MG/ML, 1ML IV PRN (17:30)
[2019-04-27] MEDS ORDERED: HYDROcodone/APAP 7.5-325MG/15ML UDC PO PRN (17:30)
[2019-04-27] MEDS ORDERED: FENTANYL PF 100 MCG/2ML IV PRN (17:30)
[2019-04-27] MEDS ORDERED: MAGNESIUM SULFATE PMX 4GM/100M 100 ML IVPB ONE (17:30)
[2019-04-27] MEDS ORDERED: MIDAZOLAM 1 MG/ML, 2ML IV PRN (17:30)
[2019-04-27] MEDS ORDERED: MEPERIDINE/PF 25MG/0.5ML IVPush PRN (17:30)
[2019-04-27] MEDS ORDERED: HYDROmorphone 2 MG/ML, 1ML IVPush PRN (17:30)
[2019-04-27] MEDS ORDERED: LABETALOL 5MG/ML, 20ML IV PRN (17:30)
[2019-04-27] MEDS ORDERED: ALBUTEROL SULFATE 2.5 MG/3 ML NPPB PRN (17:30)
[2019-04-27] MEDS ORDERED: PROMETHAZINE 25 MG/ML, 1ML IV PRN (17:30)
[2019-04-27] MEDS ORDERED: METOPROLOL 1 MG/ML, 5ML IV PRN (17:30)
[2019-04-27] MEDS ORDERED: MAGNESIUM SULFATE PMX 2GM/50ML 50 ML IVPB ONE (17:30)
[2019-04-27] MEDS ORDERED: OXYcodone 5 MG/5 ML ORAL.SOL UDC PO PRN (17:30)
[2019-04-27] MEDS: MAGNESIUM SULF. PMX 20GM/500ML 500 ML IV SCH (17:36)
[2019-04-27] MEDS ORDERED: LACTATED RINGERS 1,000 ML IV SCH ×3 (18:00→19:41)
[2019-04-27] MEDS ORDERED: FENTANYL PF 100 MCG/2ML ONE (18:40)
[2019-04-27] MEDS ORDERED: HYDROmorphone 2 MG/ML, 1ML ONE (19:38)
[2019-04-27] MEDS ORDERED: CARBOPROST TROMETHAMINE 250 MCG/ML, 1ML IM PRN (20:00)
[2019-04-27] MEDS ORDERED: SIMETHICONE 80 MG CHEW TAB PO PRN (20:00)
[2019-04-27] MEDS ORDERED: morphine SULFATE 10 MG/ML, 1ML IVPush PRN (20:00)
[2019-04-27] MEDS ORDERED: MISOPROSTOL 200 MCG TABLET PR PRN (20:00)
[2019-04-27] MEDS ORDERED: ONDANSETRON 2MG/ML, 2ML IV PRN (20:00)
[2019-04-27] MEDS ORDERED: ACETAMINOPHEN 325 MG TABLET PO PRN (20:00)
[2019-04-27] MEDS ORDERED: OXYTOCIN 30U/ 0.9% NaCL 500ML 500 ML ONE (20:19)
[2019-04-27] MEDS ORDERED: METOCLOPRAMIDE 5 MG/ML, 2ML IVPush PRN (23:00)
[2019-04-27] MEDS: OXYTOCIN 30U/ 0.9% NaCL 500ML 500 ML IV SCH (23:01)
[2019-04-28] MEDS ORDERED: MAGNESIUM SULF. PMX 20GM/500ML 500 ML IV ONE (00:24)
[2019-04-28] MEDS: MAGNESIUM SULF. PMX 20GM/500ML 500 ML IV SCH (00:30)
[2019-04-28 02:14] LABS: ALANINE AMINOTRANSFERASE 20 U/L (12-78); ALBUMIN 2.1 g/dL (3.4-5.0); ANION GAP 9 mmol/L (5-15); CALCIUM 7.8 mg/dL (8.5-10.1); CHLORIDE 102 mmol/L (98-107); CREATININE 0.99 mg/dL (0.55-1.02)
[2019-04-28 02:16] LABS: ALKALINE PHOSPHATASE 81 U/L (45-117); BILIRUBIN,TOTAL 0.3 mg/dL (0.2-1.0)
[2019-04-28 02:19] LABS: BASOPHILS # (AUTO) 0.04 x10^3/uL (0-0.1); BASOPHILS % (AUTO) 0 % (0-1); EOSINOPHILS % (AUTO) 0 % (1-7); LYMPHOCYTES # (AUTO) 1.88 x10^3/uL (1-3.4); LYMPHOCYTES % (AUTO) 11 % (22-44); MD NO; MEAN CORPUSCULAR HEMOGLOBIN 31.6 pg (27.0-34.8); MEAN CORPUSCULAR HGB CONC 33.7 g/dL (32.4-35.8); MEAN CORPUSCULAR VOLUME 93.8 fL (80-100); MEAN PLATELET VOLUME 11.1 fL (7.4-10.4); MONOCYTES % (AUTO) 2 % (2-9); NEUTROPHILS # (AUTO) 14.32 x10^3/uL (1.8-6.8); NEUTROPHILS % (AUTO) 86 % (42-75); PLATELET COUNT 192 x10^3/uL (130-400); RED BLOOD COUNT 3.53 x10^6/uL (3.82-5.3); RED CELL DISTRIBUTION WIDTH 13.4 % (9.6-15.2)
[2019-04-28] MEDS: OXYTOCIN 30U/ 0.9% NaCL 500ML 500 ML IV SCH ×2 (05:41→15:41)
[2019-04-28] MEDS ORDERED: OXYcodone/APAP 5/325MG TABLET ONE ×4 (08:06→20:55)
[2019-04-28] MEDS: OXYcodone/APAP 5/325MG TABLET PO PRN ×4 (08:11→20:57)
[2019-04-28] MEDS ORDERED: PRENATAL VIT/IRON/FA 1 EACH TABLET ONE (09:46)
[2019-04-28] MEDS ORDERED: DOCUSATE 100 MG CAPSULE ONE (09:47)
[2019-04-28] MEDS: DOCUSATE 100 MG CAPSULE PO PRN ×2 (09:49→10:00)
[2019-04-28] MEDS: PRENATAL VIT/IRON/FA 1 EACH TABLET PO SCH ×2 (09:49→10:00)
[2019-04-28] MEDS: ENOXAPARIN 40 MG/0.4 ML SQ SCH (11:02)
[2019-04-28] MEDS ORDERED: morphine SULFATE 10 MG/ML, 1ML ONE (13:09)
[2019-04-28] MEDS ORDERED: LABETALOL 200 MG TABLET ONE (13:32)
[2019-04-28] MEDS: LABETALOL 200 MG TABLET PO SCH ×2 (13:38→22:00)
[2019-04-29] MEDS: OXYTOCIN 30U/ 0.9% NaCL 500ML 500 ML IV SCH ×3 (01:41→21:41)
[2019-04-29] MEDS ORDERED: OXYcodone/APAP 5/325MG TABLET ONE ×2 (01:50→09:31)
[2019-04-29] MEDS: OXYcodone/APAP 5/325MG TABLET PO PRN ×3 (01:52→14:58)
[2019-04-29] MEDS ORDERED: PRENATAL VIT/IRON/FA 1 EACH TABLET ONE (07:18)
[2019-04-29] MEDS ORDERED: LABETALOL 100 MG TABLET ONE (07:18)
[2019-04-29 07:21] VITALS: BP 118/70
[2019-04-29] MEDS: LABETALOL 100 MG TABLET PO SCH ×2 (07:24→18:42)
[2019-04-29] MEDS: PRENATAL VIT/IRON/FA 1 EACH TABLET PO SCH (07:25)
[2019-04-29 10:00] VITALS: BP 115/76
[2019-04-29] MEDS: ENOXAPARIN 40 MG/0.4 ML SQ SCH (10:40)
[2019-04-29 16:00] VITALS: BP 128/82
[2019-04-29] MEDS: OXYcodone IR 5MG TABLET PO PRN ×2 (18:43→23:02)
[2019-04-29 20:00] VITALS: BP 136/78
[2019-04-30] MEDS: OXYcodone IR 5MG TABLET PO PRN ×5 (04:51→22:52)
[2019-04-30] MEDS: DOCUSATE 100 MG CAPSULE PO PRN ×3 (05:00→22:12)
[2019-04-30] MEDS: OXYTOCIN 30U/ 0.9% NaCL 500ML 500 ML IV SCH ×2 (05:58→17:41)
[2019-04-30 07:12] LABS: ALBUMIN 2.2 g/dL (3.4-5.0); BASOPHILS # (AUTO) 0.01 x10^3/uL (0-0.1); BASOPHILS % (AUTO) 0 % (0-1); CALCIUM 8.6 mg/dL (8.5-10.1); EOSINOPHILS # (AUTO) 0.07 x10^3/uL (0-0.4); EOSINOPHILS % (AUTO) 1 % (1-7); LYMPHOCYTES # (AUTO) 1.93 x10^3/uL (1-3.4); LYMPHOCYTES % (AUTO) 23 % (22-44); MD NO; MEAN CORPUSCULAR HEMOGLOBIN 31.2 pg (27.0-34.8); MEAN CORPUSCULAR HGB CONC 33.2 g/dL (32.4-35.8); MEAN CORPUSCULAR VOLUME 93.8 fL (80-100); MEAN PLATELET VOLUME 9.3 fL (7.4-10.4); MONOCYTES # (AUTO) 0.48 x10^3/uL (0.2-0.8); MONOCYTES % (AUTO) 6 % (2-9); NEUTROPHILS # (AUTO) 5.87 x10^3/uL (1.8-6.8); NEUTROPHILS % (AUTO) 70 % (42-75); PLATELET COUNT 184 x10^3/uL (130-400); RED BLOOD COUNT 3.08 x10^6/uL (3.82-5.3); RED CELL DISTRIBUTION WIDTH 13.8 % (9.6-15.2)
[2019-04-30 07:41] LABS: ALANINE AMINOTRANSFERASE 20 U/L (12-78); ALKALINE PHOSPHATASE 78 U/L (45-117); ANION GAP 7 mmol/L (5-15); BILIRUBIN,TOTAL 0.3 mg/dL (0.2-1.0); CHLORIDE 103 mmol/L (98-107); CREATININE 0.77 mg/dL (0.55-1.02); TOTAL PROTEIN 6.1 g/dL (6.4-8.2)
[2019-04-30 08:30] VITALS: BP 156/98
[2019-04-30] MEDS: ENOXAPARIN 40 MG/0.4 ML SQ SCH (08:53)
[2019-04-30] MEDS: PRENATAL VIT/IRON/FA 1 EACH TABLET PO SCH (08:53)
[2019-04-30] MEDS: LABETALOL 100 MG TABLET PO SCH ×2 (08:54→18:28)
[2019-04-30 11:45] VITALS: BP 123/82
[2019-04-30] MEDS: FERROUS GLUCONATE 324 MG TABLET PO SCH (14:16)
[2019-04-30 16:30] VITALS: BP 126/83
[2019-04-30 19:35] VITALS: BP 149/94
[2019-04-30 20:35] VITALS: BP 146/94
[2019-04-30] MEDS ORDERED: LABETALOL 100 MG TABLET PO ONE (22:00)
[2019-05-01] VITALS (7 sets, daily range): BP systolic 106–144; BP diastolic 67–95
[2019-05-01] MEDS: OXYcodone IR 5MG TABLET PO PRN (03:10)
[2019-05-01] MEDS: OXYTOCIN 30U/ 0.9% NaCL 500ML 500 ML IV SCH ×3 (03:41→23:41)
[2019-05-01] MEDS: LABETALOL 100 MG TABLET PO SCH (07:23)
[2019-05-01] MEDS: OXYcodone/APAP 5/325MG TABLET PO PRN ×4 (07:43→20:55)
[2019-05-01] MEDS: FERROUS GLUCONATE 324 MG TABLET PO SCH (08:00)
[2019-05-01] MEDS: DOCUSATE 100 MG CAPSULE PO PRN ×2 (08:00→20:54)
[2019-05-01] MEDS: PRENATAL VIT/IRON/FA 1 EACH TABLET PO SCH (08:00)
[2019-05-01] MEDS: LABETALOL 200 MG TABLET PO SCH ×2 (08:00→17:58)
[2019-05-01] MEDS: ENOXAPARIN 40 MG/0.4 ML SQ SCH (09:31)
[2019-05-01] MEDS ORDERED: BISACODYL 10 MG SUPP PR PRN (18:30)
[2019-05-02 01:15] VITALS: BP 124/81
[2019-05-02] MEDS: OXYcodone/APAP 5/325MG TABLET PO PRN ×4 (01:24→14:48)
[2019-05-02 05:25] VITALS: BP 133/80
[2019-05-02 06:08] LABS: ALANINE AMINOTRANSFERASE 40 U/L (12-78); ALBUMIN 2.2 g/dL (3.4-5.0); ANION GAP 6 mmol/L (5-15); CALCIUM 8.4 mg/dL (8.5-10.1); CHLORIDE 108 mmol/L (98-107); CREATININE 0.65 mg/dL (0.55-1.02)
[2019-05-02 06:10] LABS: ALKALINE PHOSPHATASE 73 U/L (45-117); BILIRUBIN,TOTAL 0.2 mg/dL (0.2-1.0); TOTAL PROTEIN 6.6 g/dL (6.4-8.2)
[2019-05-02 06:13] LABS: BASOPHILS # (AUTO) 0.02 x10^3/uL (0-0.1); BASOPHILS % (AUTO) 0 % (0-1); EOSINOPHILS # (AUTO) 0.29 x10^3/uL (0-0.4); EOSINOPHILS % (AUTO) 4 % (1-7); LYMPHOCYTES # (AUTO) 1.64 x10^3/uL (1-3.4); LYMPHOCYTES % (AUTO) 24 % (22-44); MD NO; MEAN CORPUSCULAR HEMOGLOBIN 31.8 pg (27.0-34.8); MEAN CORPUSCULAR HGB CONC 33.7 g/dL (32.4-35.8); MEAN CORPUSCULAR VOLUME 94.3 fL (80-100); MEAN PLATELET VOLUME 8.1 fL (7.4-10.4); MONOCYTES # (AUTO) 0.43 x10^3/uL (0.2-0.8); MONOCYTES % (AUTO) 6 % (2-9); NEUTROPHILS # (AUTO) 4.44 x10^3/uL (1.8-6.8); NEUTROPHILS % (AUTO) 65 % (42-75); PLATELET COUNT 242 x10^3/uL (130-400); RED BLOOD COUNT 3.08 x10^6/uL (3.82-5.3); RED CELL DISTRIBUTION WIDTH 13.7 % (9.6-15.2)
[2019-05-02 07:15] VITALS: BP 143/94
[2019-05-02] MEDS: DOCUSATE 100 MG CAPSULE PO PRN (07:17)
[2019-05-02] MEDS: PRENATAL VIT/IRON/FA 1 EACH TABLET PO SCH (07:17)
[2019-05-02] MEDS: FERROUS GLUCONATE 324 MG TABLET PO SCH (07:17)
[2019-05-02] MEDS: LABETALOL 200 MG TABLET PO SCH (07:18)
[2019-05-02] MEDS: OXYTOCIN 30U/ 0.9% NaCL 500ML 500 ML IV SCH (09:42)
[2019-05-02] MEDS: ENOXAPARIN 40 MG/0.4 ML SQ SCH (10:13)
[2019-05-02 12:52] VITALS: BP 120/82
[2019-05-02] MEDS ORDERED: OXYC-302 PO (15:40)
[2019-05-02] MEDS ORDERED: DOCU-131 PO (15:40)
[2019-05-02] MEDS ORDERED: LABE200T6 PO (15:41)
[2019-05-02] MEDS ORDERED: FERR324T18 PO (15:42)
[2019-05-02] MEDS ORDERED: PREN-3 PO (16:30)
[2019-05-02] MEDS ORDERED: ENOX40SY4 SQ (16:30)
== END 2019-05-02 16:39 | disposition home or self-care (01) | DRG 787 ==
LOC: LDIP 20:35 → 2NW 04-29 09:40
PROVIDERS: ADMIT Obstetrics & Gynecology Maternal & Fetal Medicine; ATTEND Obstetrics & Gynecology Maternal & Fetal Medicine
PROC: 10D00Z1 Extraction of Products of Conception, Low, Open Approach (ICD-10-PCS; principal; 2019-04-27)
DX: O99.12 Other diseases of the blood and blood-forming organs and certain disorders involving the immune mechanism complicating childbirth (principal); D68.52 Prothrombin gene mutation; N17.9 Acute kidney failure, unspecified; O36.5921 Maternal care for other known or suspected poor fetal growth, second trimester, fetus 1; O14.14 Severe pre-eclampsia complicating childbirth; O30.042 Twin pregnancy, dichorionic/diamniotic, second trimester; O77.8 Labor and delivery complicated by other evidence of fetal stress; O99.52 Diseases of the respiratory system complicating childbirth; O99.89 Other specified diseases and conditions complicating pregnancy, childbirth and the puerperium; O32.2XX2 Maternal care for transverse and oblique lie, fetus 2; J10.1 Influenza due to other identified influenza virus with other respiratory manifestations; H54.61 Unqualified visual loss, right eye, normal vision left eye; O32.8XX1 Maternal care for other malpresentation of fetus, fetus 1; R31.9 Hematuria, unspecified; Z37.2 Twins, both liveborn; Z3A.24 24 weeks gestation of pregnancy
CPT/HCPCS: 36415; 36600; J7121; 71045; 76819; 80053; 81001; 81050; 82248; 82542; 82575; 82803; 82962; 83615; 83735; 84156; 84550; 85025; 85384; 86850; 86900; 87205; 88307; G0378; J0690; J0702; J1100; J1170; J1650; J1885; J2405; J3010; Q0162; J2270; J2370; J2590; J2765; J3475; J7120